=== PATIENT | male | born 1995 | race Caucasian/White ===

== ENCOUNTER 2019-03-15 11:10 | Emergency (ER) | payer OTHER ==
[~2019-03-15] VITALS: Ht 185.4 cm; Wt 93.0 kg
[~2019-03-15 11:10] MED LIST: KEFLEX500 MG PO
[2019-03-15 11:47] LABS: ABSOLUTE EOSINOPHILS 0.2 thou/uL (0.0-0.7); ABSOLUTE LYMPHOCYTES 1.9 thou/uL (0.8-5.3); ABSOLUTE MONOCYTES 0.4 thou/uL (0.0-1.2); ABSOLUTE NEUTROPHILS 2.7 thou/uL (1.6-8.1); BASOPHILS 0.6 %; EOSINOPHILS 3.1 %; HEMATOCRIT 46.7 % (42.0-52.0); HEMOGLOBIN 16.5 gm/dL (14.0-18.0); LYMPHOCYTES 36.8 %; MCH 29.7 pg (26.0-34.0); MCHC 35.2 g/dL (28.0-37.0); MCV 84.4 fL (80.0-100.0); MONOCYTES 7.1 %; MPV 7.9 fl. (7.2-11.1); NUCLEATED RBCS 0 /100WBC; PLATELET COUNT* 315 thou/uL (150-400); POLYS 52.4 %; RBC 5.54 mil/uL (4.50-6.00); RDW-CV 12.6 % (10.5-14.5); WBC 5.1 thou/uL (4.0-11.0)
[2019-03-15 11:58] LABS: CREATININE 1.1 mg/dL (0.6-1.3); POTASSIUM 4.2 mmol/L (3.5-5.1)
[2019-03-15 12:08] LABS: ALBUMIN 4.6 g/dL (3.4-5.0)
[2019-03-15] MEDS ORDERED: ZANAFLEX4 MG PO (12:36)
[2019-03-15] MEDS ORDERED: NAPROSYN500 MG PO (12:36)
[2019-03-15 12:48] VITALS: BP 112/67
--- NOTE | 2019-03-16 14:30 | EKG ---
[place] [address] ELECTROCARDIOGRAM REPORT Name: DUTCH RUBALCAVA Room: [facility]#: [id number] Admission: 03/15/19 Attend Phys: Discharge: 03/15/19 Date of : [birth year] Report #: [id number] THIS REPORT FOR: //name// [facility] ED Test Date: 2019-03-15 Test Time: 11:16:34 Pat Name: DUTCH RUBALCAVA Department: Room: Gender: [employer] Advisor: : 1995 Requested By: Eli Dobson Order Number: [id number] MD: Mamadou Martin Measurements Intervals [place] Rate: 73 P: 60 NV: 151 QRS: 58 QRSD: 85 T: 30 QT: 381 QTc: 420 Interpretive Statements Sinus rhythm Nonspecific T-wave flattening, anterior leads Baseline wander in lead(s) V1 No previous ECG available for comparison Electronically Signed On 03-16-2019 14:29:29 INFORMATION TECHNOLOGY DIRECTOR by Mamadou Martin [email or web address] <ELECTRONICALLY SIGNED> By: Mamadou Martin MD, [facility] 03/16/19 1429 [id number] Mamadou Martin MD, FACC /EPI
== END 2019-03-15 12:48 | disposition home or self-care (01) ==
LOC: M.ERS 11:10
PROVIDERS: Nurse Practitioner Family
DX: I25.10 Atherosclerotic heart disease of native coronary artery without angina pectoris (principal); M94.0 Chondrocostal junction syndrome [Tietze]